=== PATIENT | male | born 1990 | race Hispanic/Latino ===

== ENCOUNTER 2022-10-19 21:14 | Emergency (ER) | payer SELFPAY ==
[2022-10-19] MEDS ORDERED: IBUPROFEN 400 MG TAB ONE (21:52)
[2022-10-19] MEDS ORDERED: HYDROCODONE/APAP 5/325 MG TAB ONE (21:53)
--- NOTE | 2022-10-19 22:47 | RAD REPORT ---
EXAM DESCRIPTION: RAD - Foot Left 3 View - 10/19/2022 10:30 pm CLINICAL HISTORY: PAIN COMPARISON: No comparisons FINDINGS: Soft tissue swelling affects the great toe. No acute fracture or dislocation seen.
--- NOTE | 2022-10-19 23:25 | ER ---
Nurse's Notes [facility] Name: Jose Duong Age: 31 yrs Sex: Male : 1990 Arrival Date: 10/19/2022 Time: 21:14 Bed 12 Private MD: Diagnosis: Pain in left foot Presentation: 10/19 21:39 Chief complaint: Patient states: "I was playing soccer and kicked the concrete". as6 Coronavirus screen: At this time, the client does not indicate any symptoms associated with coronavirus-19. Ebola Screen: No symptoms or risks identified at this time. Initial Sepsis Screen: Does the patient meet any 2 criteria? No. Patient's initial sepsis screen is negative. Does the patient have a suspected source of infection? No. Patient's initial sepsis screen is negative. Risk Assessment: Do you want to hurt yourself or someone else? Patient reports no desire to harm self or others. Onset of symptoms was October 19, 2022. 21:39 Method Of Arrival: Wheelchair as6 21:39 Acuity: WOLF 4 as6 Triage Assessment: 22:00 General: Appears in no apparent distress. Behavior is calm, cooperative. Pain: as6 Complains of pain in left foot. EENT: No deficits noted. No signs and/or symptoms were reported regarding the EENT system. Neuro: No deficits noted. Cardiovascular: No deficits noted. Respiratory: No deficits noted. GI: No deficits noted. No signs and/or symptoms were reported involving the gastrointestinal system. : No deficits noted. No signs and/or symptoms were reported regarding the genitourinary system. Derm: No deficits noted. No signs and/or symptoms reported regarding the dermatologic system. Musculoskeletal: Swelling present in left foot. Historical: - Allergies: 21:42 No Known Allergies; as6 - Home Meds: 21:42 None [Active]; as6 - PMHx: 21:42 None; as6 - PSHx: 21:42 None; as6 - Immunization history:: Client reports having NOT received the Covid vaccine. - Social history:: Smoking status: Patient reports the use of cigarette tobacco products, smokes one-half pack cigarettes per day. Screenin/18 00:03 [facility] ED Fall Risk Assessment (Adult) Score/Fall Risk Level 0 - 2 = Low Risk. Abuse as6 screen: Denies threats or abuse. Denies injuries from another. Nutritional screening: No deficits noted. Tuberculosis screening: No symptoms or risk factors identified. Vital Signs: 10/19 21:39 BP 137 / 94; Pulse 88; Resp 18 S; Temp 98.4(TE); Pulse Ox 97% on R/A; Weight 95.25 kg; as6 Height 6 ft. 3 in. ; Pain 10/10; 10/20 00:02 BP 139 / 82; Pulse 82; Resp 18 S; Pulse Ox 97% on R/A; as6 10/19 21:39 Body Mass Index 26.25 (95.25 kg, 190.5 cm) as6 10/19 21:39 Pain Scale: Adult as6 ED Course: 10/19 21:18 Patient arrived in ED. ja2 21:20 John Vásquez PA is PHCP. cp 21:20 Derian Ta MD is Attending Physician. cp 21:39 Arm band placed on. as6 21:42 Triage completed. as6 22:32 XRAY Foot LEFT 3 View In Process Unspecified. EDMS 10/20 00:03 Bed in low position. Call light in reach. as6 00:03 No provider procedures requiring assistance completed. Patient did not have IV access as6 during this emergency room visit. Crutch training done. Ortho shoe applied to left foot. Administered Medications: 10/19 21:47 Drug: Ibuprofen PO 800 mg Route: PO; as6 10/20 00:02 Follow up: Response: No adverse reaction as6 10/19 21:47 Drug: [place] PO 5 mg-325 mg 1 tabs Route: PO; as6 10/20 00:02 Follow up: Response: No adverse reaction as6 Medication: 00:02 VIS not applicable for this client. as6 Outcome: 10/19 23:24 Discharge ordered by . cp 10/20 00:03 Discharged to home ambulatory, with crutches. as6 Condition: stable Discharge instructions given to patient, Instructed on discharge instructions, follow up and referral plans. medication usage, crutch walking, Demonstrated understanding of instructions, follow-up care, crutch walking, Prescriptions given X 1. 00:04 Patient left the ED. as6 Signatures: Dispatcher [employer] EDTX Page, John, PA PA Xenia Mcginnis Ashby, RN RN as6
--- NOTE | 2022-10-19 23:25 | EDPHYS ---
Physician Documentation [facility] Name: Jose Duong Age: 31 yrs Sex: Male : 1990 Arrival Date: 10/19/2022 Time: 21:14 Bed 12 Private MD: ED Physician Derian Ta HPI: 10/19 21:40 This 31 yrs old Male presents to ER via Wheelchair with complaints of Foot cp Injury. 21:40 The patient presents with an injury, pain, that is acute. cp 21:40 The complaints affect the left foot. cp 21:40 Context: resulted from playing sports, soccer, the patient can fully bear weight, the cp patient is able to ambulate, with moderate difficulty, Patient reports he went to kick ball when he struck concrete ground injuring left great toe and left foot. Historical: - Allergies: 21:42 No Known Allergies; as6 - Home Meds: 21:42 None [Active]; as6 - PMHx: 21:42 None; as6 - PSHx: 21:42 None; as6 - Immunization history:: Client reports having NOT received the Covid vaccine. - Social history:: Smoking status: Patient reports the use of cigarette tobacco products, smokes one-half pack cigarettes per day. ROS: 21:45 Constitutional: Negative for chills, fever. cp 21:45 Neck: Negative for pain with movement, pain at rest. 21:45 Respiratory: Negative for cough, shortness of breath, wheezing. 21:45 Abdomen/GI: Negative for abdominal pain, nausea, vomiting, and diarrhea. 21:45 Back: Negative for pain at rest, pain with movement. 21:45 MS/extremity: Positive for ecchymosis, pain, swelling, tenderness, of the left great toe, pain to dorsum of left foot. 21:45 Neuro: Negative for numbness, weakness. 21:45 All other systems are negative. Exam: 21:50 Constitutional: The patient appears in no acute distress, alert, awake, well developed, cp well nourished, uncomfortable. 21:50 Head/Face: Normocephalic, atraumatic. cp 21:50 Neck: ROM/movement: is normal, is supple, without pain, no range of motions limitations. 21:50 Chest/axilla: Inspection: normal. 21:50 Cardiovascular: Rate: normal, Rhythm: regular. 21:50 Respiratory: the patient does not display signs of respiratory distress, Respirations: normal, no use of accessory muscles, no retractions, labored breathing, is not present. 21:50 Back: pain, is absent. 21:50 Musculoskeletal/extremity: Extremities: grossly normal except: noted in the : swelling, tenderness, ecchymosis noted left great toe with pain to palpation dorsum of left foot, Perfusion: the extremity is normally perfused throughout, the left foot Sensation intact. Vital Signs: 21:39 BP 137 / 94; Pulse 88; Resp 18 S; Temp 98.4(TE); Pulse Ox 97% on R/A; Weight 95.25 kg; as6 Height 6 ft. 3 in. ; Pain 02/11; 10/20 00:02 BP 139 / 82; Pulse 82; Resp 18 S; Pulse Ox 97% on R/A; as6 10/19 21:39 Body Mass Index 26.25 (95.25 kg, 190.5 cm) as6 10/19 21:39 Pain Scale: Adult as6 MDM: 10/19 21:50 Patient medically screened. 22:00 Differential diagnosis: dislocation, closed fracture, contusion. 23:24 Data reviewed: vital signs, nurses notes, radiologic studies, plain films. 23:24 I considered the following discharge prescriptions or medication management in the emergency department Medications were administered in the Emergency Department. See MAR. Independent interpretation of the following test(s) in the Emergency Department X-Ray: My interpretation is left foot negative for fracture. Counseling: I had a detailed discussion with the patient and/or guardian regarding: the historical points, exam findings, and any diagnostic results supporting the discharge/admit diagnosis, radiology results, to return to the emergency department if symptoms worsen or persist or if there are any questions or concerns that arise at home. Response to treatment: the patient's symptoms have markedly improved after treatment, and as a result, I will discharge patient. 10/19 21:34 Order name: XRAY Foot LEFT 3 View; Complete Time: 23:21 10/19 23:21 Interpretation: Reviewed report. 10/19 21:34 Order name: Ice pack; Complete Time: 21:47 10/19 23:22 Order name: Crutches; Complete Time: 23:42 cp 10/19 23:22 Order name: Post-op shoe; Complete Time: 23:42 cp Administered Medications: 21:47 Drug: Ibuprofen PO 800 mg Route: PO; 10/20 00:02 Follow up: Response: No adverse reaction as6 10/19 21:47 Drug: [place] PO 5 mg-325 mg 1 tabs Route: PO; 10/20 00:02 Follow up: Response: No adverse reaction as6 Disposition Summary: 10/19/22 23:24 Discharge Ordered Location: Home cp Problem: new cp Symptoms: have improved cp Condition: Stable cp Diagnosis - Pain in left foot cp Followup: cp - With: Private Physician - When: 1 week - Reason: Recheck today's complaints Discharge Instructions: - Discharge Summary Sheet cp - Foot Pain cp Forms: - Medication Reconciliation Form cp - Thank You Letter cp - Antibiotic Education cp - Prescription Opioid Use cp Prescriptions: - Ibuprofen 800 mg Oral Tablet - take 1 tablet by ORAL route every 8 hours As needed take with food; 30 tablet; cp Refills: 0, Product Selection Permitted Addendum: 10/21/2022 07:30 Co-signature as Attending Physician, Derian Ta MD I agree with the assessment s p4 and plan of care. I reviewed the patient's care provided by the Advanced Practice Provider and agree with the diagnosis and treatment plan. Signatures: Dispatcher [employer] John Young PA PA cp Bonilla Multani RN RN as6 Derian Ta MD MD sp4 Corrections: (The following items were deleted from the chart) 10/20 23:13 23:11 MS/extremity: Positive for ecchymosis, pain, swelling, tenderness, of the left cp great toe, pain to dorsum of left foot, cp 23:13 23:11 Constitutional: Negative for chills, fever, cp cp 23:13 23:11 Abdomen/GI: Negative for abdominal pain, nausea, vomiting, and diarrhea, cp cp 23:13 23:11 Respiratory: Negative for cough, shortness of breath, wheezing, cp cp 23:13 23:11 Back: Negative for pain at rest, pain with movement, cp cp 23:13 23:11 Neck: Negative for pain with movement, pain at rest, cp cp 23:13 23:11 Neuro: Negative for numbness, weakness, cp cp 23:13 23:11 All other systems are negative, cp cp
[2022-10-20 01:00] VITALS: BP 139/82; TEMP 98.4; O2SAT 97
== END 2022-10-20 00:04 | disposition home or self-care (01) ==
LOC: ER 21:14
DX: M79.672 Pain in left foot (principal)
CPT/HCPCS: 99284